=== PATIENT | male | born 1960 ===

== ENCOUNTER → 2022-10-05 | Outpatient (CLI) | payer OTHER ==
[~2022-10-05] VITALS: Ht 172.7 cm; Wt 90.5 kg
[~2022-10-05] MED LIST: ATEN-73 PO; ATOR20TA86 PO; GABA-1201 PO; MORP60TA49 PO
[2022-10-05 10:08] VITALS: BP 136/78
== END | disposition home or self-care (01) ==
LOC: SRCNTR 09:48
PROVIDERS: ATTEND Internal Medicine Pulmonary Disease
DX: R91.1 Solitary pulmonary nodule (principal); I10 Essential (primary) hypertension; Z95.5 Presence of coronary angioplasty implant and graft; E78.5 Hyperlipidemia, unspecified; Z86.19 Personal history of other infectious and parasitic diseases; C34.90 Malignant neoplasm of unspecified part of unspecified bronchus or lung
CPT/HCPCS: G0463